=== PATIENT | female | born 1990 | race Caucasian/White ===

== ENCOUNTER 2024-10-31 12:32 | Emergency (ER) | payer SELFPAY ==
[~2024-10-31] VITALS: Ht 162.6 cm; Wt 118.0 kg
[2024-10-31 12:37] VITALS: BP 168/115; PULSE 140; RESP 18; TEMP 37.2; O2SAT 99
== END 2024-10-31 16:32 | disposition home or self-care (01) ==
LOC: ER 14:57
DX: F41.9 Anxiety disorder, unspecified (principal); E11.9 Type 2 diabetes mellitus without complications; E78.00 Pure hypercholesterolemia, unspecified; I10 Essential (primary) hypertension; Z53.21 Procedure and treatment not carried out due to patient leaving prior to being seen by health care provider